=== PATIENT | male | born 1975 | race Caucasian/White ===

== ENCOUNTER 2025-11-17 20:09 | Observation (INO) ==
[2025-11-17 22:17] LABS: Basophils # (Auto) 0.08 K/mcL (0.00-0.30); Basophils % (Auto) 1.0 % (0.0-2.0); Eosinophils # (Auto) 0.25 K/mcL (0.00-0.70); Eosinophils % (Auto) 3.3 % (0.0-7.0); Hematocrit 37.9 % (40.1-51.0); Hemoglobin 13.3 g/dL (13.7-17.5); Lymphocytes # (Auto) 1.91 K/mcL (1.50-4.80); Lymphocytes % (Auto) 25.1 % (15.5-49.0); Mean Corpuscular HGB Conc 35.1 g/dL (31.0-36.0); Monocytes # (Auto) 0.80 K/mcL (0.10-0.90); Monocytes % (Auto) 10.5 % (1.0-12.0); Neutrophils % (Auto) 60.0 % (38.0-78.0); Platelet Count 150 K/mcL (140-440); RBC 4.07 M/mcL (4.63-6.08); WBC 7.6 K/mcL (4.5-11.0)
[2025-11-17 22:37] LABS: ALT/SGPT 110 U/L (<40); AST/SGOT 164 U/L (<40); Albumin 3.3 gm/dL (3.2-5.2); Albumin/Globulin Ratio 0.8 (1.0-2.3); Alkaline Phosphatase 186 U/L (39-117); Anion Gap 11.0 (8.0-16.0); Bilirubin,Total 2.1 mg/dL (0.1-1.0); Blood Urea Nitrogen 31 mg/dL (6-20); Calcium 8.3 mg/dL (8.6-10.4); Carbon Dioxide 21 mmol/L (22-30); Chloride 94 mmol/L (96-108); Globulin 4.0 gm/dL (2.2-3.7); Glucose 128 mg/dL (70-105); Potassium 4.6 mmol/L (3.3-5.1); Sodium 126 mmol/L (133-145); Thyroid Stimulating Hormone 9.69 uIU/mL (0.27-5.01)
[2025-11-18 00:07] LABS: Sodium, Urine Random 14 mmol/L
[2025-11-18 00:36] LABS: Bacteria,Urine Few /hpf (0); Bilirubin,Urine Negative (Negative); Calcium Oxalate Crystals,Urine Few /hpf; Color,Urine Yellow; Glucose,Urine (UA) NEGATIVE (Negative); Ketones,Urine 15 mg/dL (Negative); Leukocyte Esterase,Urine NEGATIVE /uL (Negative); Mucus,Urine Few /hpf; PH,Urine 5.5 (5.0-9.0); Protein,Urine NEGATIVE (Negative); Specific Gravity,Urine 1.020 (1.000-1.035); Urobilinogen,Urine 0.2 mg/dL
[2025-11-18] MEDS: THIAMINE 200 MG in 0.9 % SODIUM CHLORIDE 50 ML IV ONE (01:21)
[2025-11-18] MEDS: THIAMINE 100 MG/ML VIAL ONE (01:23)
[2025-11-18 01:55] LABS: HDL Cholesterol 14.0 mg/dL (>40); LDL Cholesterol,Calculated 20.0 mg/dL (<100); Triglycerides 308.0 mg/dL (<150)
[2025-11-18] MEDS ORDERED: ONDANSETRON 4 MG/2 ML VIAL IV PRN (02:50)
[2025-11-18] MEDS ORDERED: MELATONIN 3 MG TABLET PO PRN (02:50)
[2025-11-18] MEDS ORDERED: IPRATROPIUM/ALBUTEROL 3 ML AMPUL.NEB NEB PRN (02:50)
[2025-11-18] MEDS ORDERED: ACETAMINOPHEN 325 MG TABLET PO PRN (02:50)
[2025-11-18] MEDS ORDERED: DIAZEPAM 10 MG/2 ML SYRINGE IV PRN (02:50)
[2025-11-18] MEDS: IPRATROPIUM/ALBUTEROL 3 ML AMPUL.NEB NEB SCH (03:27)
[2025-11-18] MEDS: 0.9 % SODIUM CHLORIDE 10 ML SYRINGE IV SCH ×2 (05:06)
[2025-11-18 05:43] LABS: Basophils # (Auto) 0.08 K/mcL (0.00-0.30); Basophils % (Auto) 1.0 % (0.0-2.0); Eosinophils # (Auto) 0.28 K/mcL (0.00-0.70); Eosinophils % (Auto) 3.5 % (0.0-7.0); Hematocrit 33.9 % (40.1-51.0); Hemoglobin 12.0 g/dL (13.7-17.5); Lymphocytes # (Auto) 2.16 K/mcL (1.50-4.80); Lymphocytes % (Auto) 27.2 % (15.5-49.0); Mean Corpuscular HGB Conc 35.4 g/dL (31.0-36.0); Monocytes # (Auto) 0.81 K/mcL (0.10-0.90); Monocytes % (Auto) 10.2 % (1.0-12.0); Neutrophils % (Auto) 58.0 % (38.0-78.0); Platelet Count 138 K/mcL (140-440); RBC 3.64 M/mcL (4.63-6.08); WBC 7.9 K/mcL (4.5-11.0)
[2025-11-18 06:08] LABS: Estimated Average Glucose(eAG) 134 mg/dL; Hemoglobin A1C 6.3 % Hgb (4.0-6.0)
[2025-11-18 06:21] LABS: ALT/SGPT 94 U/L (<40); AST/SGOT 141 U/L (<40); Albumin 2.8 gm/dL (3.2-5.2); Albumin/Globulin Ratio 0.8 (1.0-2.3); Alkaline Phosphatase 166 U/L (39-117); Anion Gap 14.0 (8.0-16.0); Bilirubin,Direct 1.7 mg/dL (<0.3); Bilirubin,Total 2.2 mg/dL (0.1-1.0); Blood Urea Nitrogen 35 mg/dL (6-20); Calcium 7.9 mg/dL (8.6-10.4); Carbon Dioxide 18 mmol/L (22-30); Chloride 96 mmol/L (96-108); Globulin 3.7 gm/dL (2.2-3.7); Glucose 94 mg/dL (70-105); Phosphorous 4.1 mg/dL (2.5-4.5); Potassium 5.1 mmol/L (3.3-5.1); Sodium 128 mmol/L (133-145); Triglycerides 227 mg/dL (<150); Uric Acid 9.4 mg/dL (2.5-8.0)
[2025-11-18] MEDS: IPRATROPIUM/ALBUTEROL 3 ML AMPUL.NEB NEB ONE ×2 (06:46→06:47)
[2025-11-18] MEDS: 0.9 % SODIUM CHLORIDE 1,000 ML IV SCH ×2 (08:00→23:39)
[2025-11-18] MEDS: THIAMINE 200 MG in 0.9 % SODIUM CHLORIDE 50 ML IV SCH (08:01)
[2025-11-18] MEDS: SODIUM CHLORIDE 1 GM TABLET PO ONE ×3 (08:01→23:41)
[2025-11-18] MEDS: CARVEDILOL 12.5 MG TABLET PO SCH (08:01)
[2025-11-18 09:37] LABS: Sodium 128 mmol/L (133-145)
[2025-11-18] MEDS: ATORVASTATIN 40 MG TABLET PO SCH (09:44)
[2025-11-18] MEDS: HYDROcodone/APAP 10/325MG TABLET PO SCH (09:44)
[2025-11-18] MEDS: HEPARIN 5,000 UNIT/ML VIAL SQ SCH (09:45)
[2025-11-18 15:10] LABS: Anion Gap 11.0 (8.0-16.0); Blood Urea Nitrogen 32 mg/dL (6-20); Calcium 8.6 mg/dL (8.6-10.4); Carbon Dioxide 23 mmol/L (22-30); Chloride 94 mmol/L (96-108); Glucose 137 mg/dL (70-105); Potassium 4.7 mmol/L (3.3-5.1); Sodium 128 mmol/L (133-145)
[2025-11-18] MEDS ORDERED: SODIUM CHLORIDE 1 GM TABLET PO SCH (21:00)
[2025-11-18 22:46] LABS: Anion Gap 12.0 (8.0-16.0); Blood Urea Nitrogen 30 mg/dL (6-20); Calcium 7.9 mg/dL (8.6-10.4); Carbon Dioxide 20 mmol/L (22-30); Chloride 98 mmol/L (96-108); Glucose 112 mg/dL (70-105); Potassium 4.7 mmol/L (3.3-5.1); Sodium 130 mmol/L (133-145)
[2025-11-18] MEDS: CALCIUM GLUCONATE 4.65 MEQ in DEXTROSE 5% IN WATER 50 ML IV ONE (23:40)
[2025-11-18] MEDS: CALCIUM GLUCONATE 4.65 MEQ/10 ML VIAL ONE (23:42)
[2025-11-19 06:09] LABS: Basophils # (Auto) 0.06 K/mcL (0.00-0.30); Basophils % (Auto) 1.1 % (0.0-2.0); Eosinophils # (Auto) 0.31 K/mcL (0.00-0.70); Eosinophils % (Auto) 5.5 % (0.0-7.0); Hematocrit 34.3 % (40.1-51.0); Hemoglobin 11.6 g/dL (13.7-17.5); Lymphocytes # (Auto) 1.63 K/mcL (1.50-4.80); Lymphocytes % (Auto) 28.9 % (15.5-49.0); Mean Corpuscular HGB Conc 33.8 g/dL (31.0-36.0); Monocytes # (Auto) 0.55 K/mcL (0.10-0.90); Monocytes % (Auto) 9.8 % (1.0-12.0); Neutrophils % (Auto) 54.5 % (38.0-78.0); Platelet Count 127 K/mcL (140-440); RBC 3.57 M/mcL (4.63-6.08); WBC 5.6 K/mcL (4.5-11.0)
[2025-11-19 06:39] LABS: ALT/SGPT 79 U/L (<40); AST/SGOT 120 U/L (<40); Albumin 2.7 gm/dL (3.2-5.2); Albumin/Globulin Ratio 0.8 (1.0-2.3); Alkaline Phosphatase 156 U/L (39-117); Anion Gap 9.0 (8.0-16.0); Bilirubin,Direct 1.3 mg/dL (<0.3); Bilirubin,Total 1.7 mg/dL (0.1-1.0); Blood Urea Nitrogen 24 mg/dL (6-20); Calcium 7.9 mg/dL (8.6-10.4); Carbon Dioxide 21 mmol/L (22-30); Chloride 102 mmol/L (96-108); Globulin 3.4 gm/dL (2.2-3.7); Glucose 90 mg/dL (70-105); Phosphorous 2.6 mg/dL (2.5-4.5); Potassium 4.4 mmol/L (3.3-5.1); Sodium 132 mmol/L (133-145); Triglycerides 240 mg/dL (<150); Uric Acid 8.5 mg/dL (2.5-8.0)
[2025-11-19 08:09] VITALS: TEMP 97.6
[2025-11-19 10:05] VITALS: O2SAT 94
== END 2025-11-19 11:19 | disposition home or self-care (01) ==
LOC: ICU 20:09 → ED 20:09 → ICU 11-18 02:54
PROVIDERS: ADMIT Student in an Organized Health Care Education/Training Program; ATTEND Student in an Organized Health Care Education/Training Program